=== PATIENT | male | born 1970 | race Caucasian/White ===

== ENCOUNTER 2018-04-13 01:21 | Emergency (ER) | END 2018-04-13 02:07 | disposition home or self-care (01) | DX: B86 Scabies (principal); F15.10 Other stimulant abuse, uncomplicated; Z59.0 Homelessness ==

== ENCOUNTER 2018-07-14 15:17 | Emergency (ER) | payer MEDICAID, OTHER ==
[~2018-07-14] VITALS: Ht 167.6 cm; Wt 75.7 kg
[2018-07-14 15:30] VITALS: BP 135/90
== END 2018-07-14 16:59 | disposition home or self-care (01) ==
LOC: ER 15:23
DX: B86 Scabies (principal); B35.1 Tinea unguium; Z59.0 Homelessness

== ENCOUNTER 2018-08-26 19:28 | Emergency (ER) | payer OTHER ==
--- NOTE | 2018-08-26 19:39 | NUR ---
CALLED PT TO BE TRAIGED, NO ANSWER
--- NOTE | 2018-08-26 20:07 | NUR ---
CALLED PT TO BE TRIAGED, NO ANSWER
== END 2018-08-26 20:23 | disposition left against medical advice (07) ==
LOC: ER 19:28
DX: Z53.21 Procedure and treatment not carried out due to patient leaving prior to being seen by health care provider (principal)

== ENCOUNTER 2018-08-26 23:31 | Emergency (ER) | payer OTHER ==
[~2018-08-26] VITALS: Ht 167.6 cm; Wt 77.1 kg
[2018-08-27 00:27] VITALS: BP 138/88
--- NOTE | 2018-08-27 00:30 | NUR ---
PRESENRTED W/ C/O R EAR PAIN. SEEN AND EXAMINED BY . PRISCRIPTION AND INSTRUCTION WAS PROVIDED, W. UNDERSTANDING . PT WAS D/C'D HOME IN STABLE CONDITION.
== END 2018-08-27 02:01 | disposition home or self-care (01) ==
LOC: ER 23:34
DX: H60.91 Unspecified otitis externa, right ear (principal); L30.9 Dermatitis, unspecified; Z59.0 Homelessness

== ENCOUNTER 2018-09-17 05:37 | Emergency (ER) | payer OTHER ==
[~2018-09-17] VITALS: Ht 167.6 cm; Wt 77.1 kg
[2018-09-17 06:34] VITALS: BP 137/91
== END 2018-09-17 06:51 | disposition home or self-care (01) ==
LOC: ER 05:37
DX: F15.10 Other stimulant abuse, uncomplicated (principal); Z59.0 Homelessness

== ENCOUNTER 2018-09-26 04:27 | Emergency (ER) | payer OTHER ==
[~2018-09-26] VITALS: Ht 167.6 cm; Wt 78.5 kg
[2018-09-26 04:33] VITALS: BP 138/85
== END 2018-09-26 04:52 | disposition home or self-care (01) ==
LOC: ER 04:30
DX: L30.9 Dermatitis, unspecified (principal); Z59.0 Homelessness; Z76.0 Encounter for issue of repeat prescription

== ENCOUNTER 2020-09-04 03:55 | Emergency (ER) | payer OTHER ==
--- NOTE | 2020-09-04 05:04 | NUR ---
called for triage . no answer
== END 2020-09-04 05:14 | disposition home or self-care (01) ==
LOC: ER 04:01
DX: Z53.21 Procedure and treatment not carried out due to patient leaving prior to being seen by health care provider (principal)

== ENCOUNTER 2023-01-02 04:59 | Emergency (ER) | payer OTHER | END 2023-01-02 06:14 | disposition left against medical advice (07) | LOC: ER 05:10 | DX: Z53.21 Procedure and treatment not carried out due to patient leaving prior to being seen by health care provider (principal) ==

== ENCOUNTER 2024-01-31 13:47 | Inpatient (IN) | payer OTHER ==
[~2024-01-31] VITALS: Ht 167.6 cm; Wt 79.1 kg
[2024-01-31] MEDS ORDERED: CT SWABBABLE VALVE TRANS SET 1 EA INFUS.SET MC ONE (15:51)
[2024-01-31] MEDS ORDERED: IOHEXOL-350 100 ML VIAL IV ONE (15:51)
[2024-01-31] MEDS ORDERED: IV NS 0.9% 250 ML IV ONE (15:51)
[2024-01-31 16:12] LABS: BASOPHILS % (AUTO) 0.7 % (0.0-2.0); EOSINOPHILS # (AUTO) 0.2 K/uL (0.0-0.7); EOSINOPHILS % (AUTO) 3.7 % (0.0-6.0); HEMATOCRIT 45 % (39-51); HEMOGLOBIN 15.6 g/dL (13.5-17.5); LYMPHOCYTES # (AUTO) 1.9 K/uL (0.8-4.8); LYMPHOCYTES % (AUTO) 35.1 % (20.0-44.0); MEAN CORPUSCULAR HEMOGLOBIN 32 PG (26.0-33.0); MEAN CORPUSCULAR HGB CONC 34 g/dl (31.0-36.0); MEAN CORPUSCULAR VOLUME 94 fL (80-96); MONOCYTES # (AUTO) 0.5 K/uL (0.1-1.30); MONOCYTES % (AUTO) 9.2 % (2.0-12.0); NEUTROPHILS # (AUTO) 2.7 K/uL (1.8-8.9); NEUTROPHILS % (AUTO) 51.3 % (43.0-81.0); PLATELET COUNT (AUTO) 279 K/uL (150-450); RED BLOOD CELL COUNT(AUTO) 4.81 MIL/uL (4.5-6.0); WHITE BLOOD COUNT (AUTO) 5.3 K/uL (4.3-11.0)
[2024-01-31 16:16] LABS: ERYTHROCYTE SEDIMENTATION RATE 6 MM/HR (0-20)
[2024-01-31 16:29] LABS: CALCIUM, SERUM 9.3 mg/dL (8.5-10.1); CARBON DIOXIDE 26 mmol/L (21-32); CHLORIDE 104 mmol/L (98-107); CREATININE 1.1 mg/dL (0.6-1.3); GLUCOSE 82 mg/dL (74-106); POTASSIUM 4.2 mmol/L (3.5-5.1); SODIUM SERUM 140 mmol/L (136-145); UREA NITROGEN, BLOOD 15 mg/dL (7-18)
[2024-01-31 16:40] LABS: C-REACTIVE PROTEIN < 0.05 mg/dL (0.0-0.30)
[2024-01-31] MEDS ORDERED: CEFEPIME 1 GM VIAL ONE (19:30)
[2024-01-31] MEDS: VANCOMYCIN 1 GM in IV D5W 250 ML IV ONE (19:30)
[2024-01-31] MEDS ORDERED: VANCOMYCIN 1 GM /D5W 250 ML PB IV ONE (19:30)
[2024-01-31] MEDS: CEFEPIME 1 GM in IV D5W 50 ML IV ONE (19:37)
[2024-02-01] MEDS: IV NS 0.9% 1,000 ML IV ONE (06:30)
[2024-02-01] MEDS: ATROPINE SULFATE INJ 1 MG/ML VIAL IV ONE (06:30)
[2024-02-01] MEDS ORDERED: ATROPINE SULFATE 1 MG/10 ML DISP.SYRIN ONE (06:32)
[2024-02-01 07:32] LABS: MAGNESIUM 1.9 mg/dL (1.8-2.4)
[2024-02-01 07:40] LABS: LACTIC ACID 0.7 mmol/L (0.4-2.0)
[2024-02-01 07:46] LABS: THYROID STIMULATING HORMONE 1.6 uIU/mL (0.358-3.74)
[2024-02-01 08:42] VITALS: BP 105/71; TEMP 97.8; O2SAT 97
[2024-02-01 12:33] VITALS: BP 105/51; TEMP 97.7; O2SAT 95
[2024-02-01] MEDS ORDERED: MAGNESIUM HYDROXIDE 30 ML UDC PO PRN (13:30)
[2024-02-01] MEDS ORDERED: MAG HYDROX/AL HYDROX/SIMETH 30 ML UDC PO PRN (13:30)
[2024-02-01] MEDS ORDERED: ONDANSETRON HCL/PF 4 MG/2 ML VIAL IVP PRN (13:30)
[2024-02-01] MEDS ORDERED: IV NS 0.9% 1,000 ML IV PRN (13:30)
[2024-02-01] MEDS ORDERED: Z GUARD REMEDY 4 OZ OINT TP PRN (13:30)
[2024-02-01] MEDS: ACETAMINOPHEN 325 MG TABLET PO PRN (14:29)
== END 2024-02-01 15:01 | disposition home or self-care (01) | DRG 201 ==
LOC: ER 13:58 → TELE1 02-01 08:20
DX: R00.1 Bradycardia, unspecified (principal); H70.11 Chronic mastoiditis, right ear
CPT/HCPCS: 36415; 70481-TC; 80048-TC; 83605-TC; 83735-TC; 83880; 84443-TC; 84484-TC; 85025-TC; 85652-TC; 86140-TC; 87040-TC; A4223; G0378; J0461; J0692; J3370; J7050; J7060; Q9967

== ENCOUNTER 2024-09-15 03:33 | Emergency (ER) | payer OTHER ==
[~2024-09-15] VITALS: Ht 167.6 cm; Wt 77.1 kg
[2024-09-15] MEDS ORDERED: KETOROLAC TROMETHAMINE INJ 30 MG/ML VIAL ONE (05:17)
[2024-09-15] MEDS: KETOROLAC TROMETHAMINE INJ 30 MG/ML VIAL IM ONE (05:30)
[2024-09-15] MEDS: CYCLOBENZAPRINE 10 MG TABLET PO ONE (05:30)
[2024-09-15] MEDS: CYCLOBENZAPRINE 10 MG TABLET ONE (05:31)
[2024-09-15] MEDS ORDERED: CYCL5TAB PO (05:36)
[2024-09-15 05:51] VITALS: BP 124/65; TEMP 98.5; O2SAT 98
== END 2024-09-15 05:51 | disposition home or self-care (01) ==
LOC: ER 03:51
DX: M54.9 Dorsalgia, unspecified (principal); R07.9 Chest pain, unspecified; F19.10 Other psychoactive substance abuse, uncomplicated; Z59.00 Homelessness unspecified
CPT/HCPCS: 99283; 71045; 96372; 93005; J1885